=== PATIENT | female | born 1985 | race Caucasian/White ===

== ENCOUNTER 2016-08-09 19:12 | Emergency (ER) | payer OTHER ==
--- NOTE | 2016-08-09 19:19 | EDM.PDOC ---
ED HPI GENERAL MEDICAL PROBLEM - General Chief Complaint: General Stated Complaint: PT HAS SORE THROAT Time Seen by Provider: 08/09/16 19:12 Source of Information: Reports: Patient History Limitations: Reports: No limitations - History of Present Illness INITIAL COMMENTS - FREE TEXT/NARRATIVE: HISTORY AND PHYSICAL: History of present illness: [She comes to the emergency room complaining of a sore throat, muscle and joint aches and pains, dry cough, nausea and generalized malaise. Symptoms have been present for the past 3-4 days but have worsened over the past 48 hours. 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 She's not taken any medications for her symptoms. She denies any medication allergies. She does not smoke. Denies fever and chills, earaches, runny nose. No vomiting or diarrhea. Is not coughing up sputum. Is otherwise well and has no other complaints or concerns.] Review of systems: As per history of present illness and below otherwise all systems reviewed and negative. Past medical history: As per history of present illness and as reviewed below otherwise noncontributory. Surgical history: As per history of present illness and as reviewed below otherwise noncontributory. Social history: No reported history of drug or alcohol abuse. Family history: As per history of present illness and as reviewed below otherwise noncontributory. Physical exam: HEENT: Atraumatic, normocephalic. Oral mucous membranes are pink and moist. no tonsillar swelling or exudate appreciated. Posterior oropharynx is erythematous. No oral lesions. negative for conjunctival pallor or scleral icterus. Nares are patent and without discharge. neck supple, nontender, no lymphadenopathy. Lungs: Clear to auscultation bilaterally, breath sounds equal bilaterally. Heart: S1S2, regular rate, negative for clicks, rubs, or JVD. Abdomen: Soft, nondistended, nontender. Pelvis: Stable nontender. Genitourinary: Deferred. Rectal: Deferred. Extremities: Atraumatic. Neurovascular unremarkable. Neuro: Awake, alert, oriented. Pleasant and conversational. Motor and sensory unremarkable throughout. Exam nonfocal. Diagnostics: [Influenza swab, strep swab] Impression: [Influenza B] Plan: [Discussed with patient that her swab for influenza is positive. She is outside the 48 hour treatment of for Tamiflu. Recommend she push fluids, get plenty of rest. Alternate Tylenol and ibuprofen as needed for fever and discomfort. All questions are answered and concerns are addressed] Definitive disposition and diagnosis as appropriate pending reevaluation and review of above. Throat Pain Score (Numeric/FACES): 3 - Related Data Allergies Allergy/AdvReac Type Severity Reaction Status Date / Time prednisone Allergy Tachycardia Verified 08/09/16 19:17 Home Meds: Home Meds Control 08/09/16 [History] ED ROS GENERAL - Review of Systems Review Of Systems: ROS reveals no pertinent complaints other than HPI. ED EXAM, GENERAL - Physical Exam Exam: See Below Course - Vital Signs Last Recorded V/S: Last Vital Signs Temp Pulse 118 H 08/09/16 19:18 Resp 18 08/09/16 19:18 BP 143/94 H 08/09/16 19:18 Pulse Ox 98 08/09/16 19:18 - Orders/Labs/Meds Orders: Active Orders 24 hr Category Date Time Status CULTURE STREP A CONFIRMATION [RM] Stat Lab 08/09/16 19:15 Results STREP SCRN A RAPID W CULT CONF [RM] Stat Lab 08/09/16 19:15 Results Departure - Departure Time of Disposition: 20:05 Disposition: Home, Self-Care 01 Condition: good Clinical Impression: Influenza Instructions: Influenza, Adult, [id number] Referrals: PCP,None [Primary Care Provider] - Forms: ED Department Discharge Additional Instructions: The following information is given to patients seen in the emergency department who are being discharged to home. This information is to outline your options for follow-up care. We provide all patients seen in our emergency department with a follow-up referral. The need for follow-up, as well as the timing and circumstances, are variable depending upon the specifics of your emergency department visit. If you don't have a primary care physician on staff, we will provide you with a referral. We always advise you to contact your personal physician following an emergency department visit to inform them of the circumstance of the visit and for follow-up with them and/or the need for any referrals to a consulting specialist. The emergency department will also refer you to a specialist when appropriate. This referral assures that you have the opportunity for follow-up care with a specialist. All of these measure are taken in an effort to provide you with optimal care, which includes your follow-up. Under all circumstances we always encourage you to contact your private physician who remains a resource for coordinating your care. When calling for follow-up care, please make the office aware that this follow-up is from your recent emergency room visit. If for any reason you are refused follow-up, please contact the [facility] emergency department at and asked to speak to the emergency department charge nurse. [facility] [address] [place] [id number] Followup with her local primary care provider or at the clinic listed above in 48-72 hours. Rest, push fluids, you may alternate Tylenol and acetaminophen every 3-4 hours as needed for fever or discomfort. Return to ER as needed and as discussed. - My Orders Last 24 Hours: My Active Orders 08/09/16 19:15 CULTURE STREP A CONFIRMATION [RM] Stat STREP SCRN A RAPID W CULT CONF [RM] Stat - Assessment/Plan Last 24 Hours: My Active Orders 08/09/16 19:15 CULTURE STREP A CONFIRMATION [RM] Stat STREP SCRN A RAPID W CULT CONF [] Stat
[2016-08-09 19:27] VITALS: BP 143/94
== END 2016-08-09 20:16 | disposition home or self-care (01) ==
LOC: MW.ED 19:12
DX: J11.1 Influenza due to unidentified influenza virus with other respiratory manifestations (principal)
CPT/HCPCS: 87081; 87804; 87880; 99282; 99283